=== PATIENT | female | born 1955 | race Caucasian/White ===

== ENCOUNTER 2020-05-01 12:11 | Inpatient (IN) | payer OTHER ==
--- NOTE | 2020-05-01 12:31 | ED ---
General Adult HPI - General Stated complaint: Arrhythmia Time Seen by Provider: 05/01/20 12:11 Source: patient, RN notes reviewed, old records reviewed - History of Present Illness Initial comments: This is a 64-year-old female who presents emergency department stating that on a walk today she felt very lightheaded and though her heart was racing. Patient felt short of breath as well. Patient denies any chest pain. Patient states normally this has happened in the past she lays down and hold her breath and it goes away. Patient states today it was much more significant and it wasn't going away and there is no place for her to lay down. Patient denies any recent fever chills or cough. Patient denies any nausea vomiting. The paramedics gave the patient adenosine 6 and then 12 and then her heart rate slowed down. P atient states currently she is asymptomatic. Patient is never seen a physician for this. Patient denies any swelling to the legs or calf tenderness. - Related Data Allergies Allergy/AdvReac Type Severity Reaction Status Date / Time Sulfa (Sulfonamide Allergy Unknown Verified 05/01/20 13:45 Antibiotics) Review of Systems ROS Statement: Those systems with pertinent positive or pertinent negative responses have been documented in the HPI. ROS Other: All systems not noted in ROS Statement are negative. General Exam - General Exam Comments Initial Comments: GENERAL: Patient is well-developed and well-nourished. Patient is nontoxic and well- hydrated and is in no acute distress. ENT: Neck is soft and supple. No significant lymphadenopathy is noted. Oropharynx is clear. Moist mucous membranes. Neck has full range of motion without eliciting any pain. EYES: The sclera were anicteric and conjunctiva were pink and moist. Extraocular movements were intact and pupils were equal round and reactive to light. Eyelids were unremarkable. PULMONARY: Unlabored respirations. Good breath sounds bilaterally. No audible rales rhonchi or wheezing was noted. CARDIOVASCULAR: There is a regular rate and rhythm without any murmurs gallops or rubs. ABDOMEN: Soft and nontender with normal bowel sounds. SKIN: Skin is clear with no lesions or rashes and otherwise unremarkable. NEUROLOGIC: Patient is alert and oriented x3. Cranial nerves II through XII are grossly intact. Motor and sensory are also intact. Normal speech, volume and content. Symmetrical smile. MUSCULOSKELETAL: Normal extremities with adequate strength and full range of motion. No lower extremity swelling or edema. No calf tenderness. LYMPHATICS: No significant lymphadenopathy is noted PSYCHIATRIC: Normal psychiatric evaluation. Course Vital Signs 05/01/20 05/01/20 12:32 13:33 Temperature 97.8 F Pulse Rate 87 81 Respiratory 15 16 Rate Blood Pressure 104/72 100/70 O2 Sat by Pulse 98 99 Oximetry Medical Decision Making - Medical Decision Making EKG shows normal sinus rhythm at 89 bpm IA interval 186 QRS is 64 QT interval 358 QTC is 435 per patient's EKG shows no ST segment elevation or depression. Chest x-ray shows no acute abnormality. Patient's troponin was elevated 0.107 and because of that we will observe the patient overnight I spoke with Dr. Foote he agreed to admit the patient admitted the patient I consult to cardiology. - Lab Data Result diagrams: 05/01/20 12:45 05/01/20 12:45 Lab Results 05/01/20 05/01/20 05/01/20 Range/Units 12:45 12:45 12:45 WBC 9.6 (3.8-10.6) k/uL RBC 4.65 (3.80-5.40) m/uL Hgb 13.5 (11.4-16.0) gm/dL Hct 42.9 (34.0-46.0) % MCV 92.3 (80.0-100.0) fL MCH 29.0 (25.0-35.0) pg MCHC 31.4 (31.0-37.0) g/dL RDW 13.2 (11.5-15.5) % Plt Count 257 (150-450) k/uL Neutrophils % 79 % Lymphocytes % 13 % Monocytes % 4 % Eosinophils % 3 % Basophils % 1 % Neutrophils # 7.6 (1.3-7.7) k/uL Lymphocytes # 1.2 (1.0-4.8) k/uL Monocytes # 0.4 (0-1.0) k/uL Eosinophils # 0.3 (0-0.7) k/uL Basophils # 0.1 (0-0.2) k/uL PT 9.7 (9.0-12.0) sec INR 0.9 (<1.2) APTT 18.5 L (22.0-30.0) sec Sodium 135 L (137-145) mmol/L Potassium 4.9 (3.5-5.1) mmol/L Chloride 101 (98-107) mmol/L Carbon Dioxide 25 (22-30) mmol/L Anion Gap 9 mmol/L BUN 19 H (7-17) mg/dL Creatinine 0.89 (0.52-1.04) mg/dL Est GFR (CKD-EPI)AfAm 80 (>60 ml/min/1.73 sqM) Est GFR (CKD-EPI)NonAf 70 (>60 ml/min/1.73 sqM) Glucose 111 H (74-99) mg/dL Calcium 9.1 (8.4-10.2) mg/dL Magnesium 1.7 (1.6-2.3) mg/dL Total Bilirubin 0.4 (0.2-1.3) mg/dL AST 28 (14-36) U/L ALT 20 (4-34) U/L Alkaline Phosphatase 59 (38-126) U/L Troponin I (0.000-0.034) ng/mL Total Protein 6.6 (6.3-8.2) g/dL Albumin 4.0 (3.5-5.0) g/dL TSH 17.400 H (0.465-4.680) mIU/L 05/01/20 Range/Units 12:45 WBC (3.8-10.6) k/uL RBC (3.80-5.40) m/uL Hgb (11.4-16.0) gm/dL Hct (34.0-46.0) % MCV (80.0-100.0) fL MCH (25.0-35.0) pg MCHC (31.0-37.0) g/dL RDW (11.5-15.5) % Plt Count (150-450) k/uL Neutrophils % % Lymphocytes % % Monocytes % % Eosinophils % % Basophils % % Neutrophils # (1.3-7.7) k/uL Lymphocytes # (1.0-4.8) k/uL Monocytes # (0-1.0) k/uL Eosinophils # (0-0.7) k/uL Basophils # (0-0.2) k/uL PT (9.0-12.0) sec INR (<1.2) APTT (22.0-30.0) sec Sodium (137-145) mmol/L Potassium (3.5-5.1) mmol/L Chloride (98-107) mmol/L Carbon Dioxide (22-30) mmol/L Anion Gap mmol/L BUN (7-17) mg/dL Creatinine (0.52-1.04) mg/dL Est GFR (CKD-EPI)AfAm (>60 ml/min/1.73 sqM) Est GFR (CKD-EPI)NonAf (>60 ml/min/1.73 sqM) Glucose (74-99) mg/dL Calcium (8.4-10.2) mg/dL Magnesium (1.6-2.3) mg/dL Total Bilirubin (0.2-1.3) mg/dL AST (14-36) U/L ALT (4-34) U/L Alkaline Phosphatase (38-126) U/L Troponin I 0.107 H* (0.000-0.034) ng/mL Total Protein (6.3-8.2) g/dL Albumin (3.5-5.0) g/dL TSH (0.465-4.680) mIU/L Disposition Clinical Impression: SVT (supraventricular tachycardia), Elevated troponin Disposition: ADMITTED IP TO THIS [facility] Referrals: Nonstaff,Physician [Primary Care Provider] - 1-2 days Time of Disposition: 14:22
[2020-05-01 13:01] LABS: Basophils # (A) 0.1 k/uL (0-0.2); Basophils % (A) 1 %; Eosinophils # (A) 0.3 k/uL (0-0.7); Eosinophils % (A) 3 %; HCT 42.9 % (34.0-46.0); HGB 13.5 gm/dL (11.4-16.0); Lymphocytes # (A) 1.2 k/uL (1.0-4.8); Lymphocytes % (A) 13 %; MCHC 31.4 g/dL (31.0-37.0); MCV 92.3 fL (80.0-100.0); Mean Platelet Volume 7.1; Monocytes # (A) 0.4 k/uL (0-1.0); Monocytes % (A) 4 %; Neutrophils # (A) 7.6 k/uL (1.3-7.7); Neutrophils % (A) 79 %; Platelet Count 257 k/uL (150-450); RBC 4.65 m/uL (3.80-5.40); RDW 13.2 % (11.5-15.5); WBC 9.6 k/uL (3.8-10.6)
--- NOTE | 2020-05-01 13:02 | XR ---
EXAMINATION TYPE: XR chest 2V DATE OF EXAM: 05/01/2020 COMPARISON: NONE HISTORY: Dysrhythmia TECHNIQUE: Frontal and lateral views of the chest are obtained. FINDINGS: There is no focal air space opacity, pleural effusion, or pneumothorax seen. The cardiac silhouette size is within normal limits. The osseous structures are intact. There are overlying car diac leads. Nodular densities present left lower lobe measuring approximately 8 mm. IMPRESSION: No acute cardiopulmonary process. Indeterminate pulmonary nodule, comparison with any ol d chest x-rays if available is recommended. Alternatively, short interval follow-up is recommended.
[2020-05-01 13:14] LABS: Calcium 9.1 mg/dL (8.4-10.2); Magnesium 1.7 mg/dL (1.6-2.3); Potassium 4.9 mmol/L (3.5-5.1); Total Bilirubin 0.4 mg/dL (0.2-1.3); Total Protein 6.6 g/dL (6.3-8.2)
[2020-05-01 13:16] LABS: INR 0.9 (<1.2); Prothrombin Time 9.7 sec (9.0-12.0)
[2020-05-01 13:23] LABS: Partial Thromboplastin Time 18.5 sec (22.0-30.0)
[2020-05-01] MEDS ORDERED: NITROGLYCERIN SL TABS 0.4 MG TAB SUBLINGUAL PRN (14:22)
--- NOTE | 2020-05-01 14:53 | P.HPIM ---
History of Present Illness This is a pleasant 64 years old female with past medical history of hypothyroidism, she is also on hormonal therapy with levothyroxine and estradiol. Presents because of palpitation and dressing heart rate. Patient states she gets that's often however today she was hiking with her friend when she started having resting heart rate and palpitation usually she lies down and get some rest and goes away but because she was hiking with her friend this time she kept moving on and within half an hour she become short of breath, dizzy, less energy and started sweating so her friend called [facility] for her. In the ambulance she received edema seen 6 and 12 mg and she felt better after that. Her symptoms of shortness of breath dizziness and addition all resolved and currently she is sitting in bed comfortable with no specific complaints. She denies chest pain, or discomfort. No dyspnea currently Patient denies change in urine or bowel habits, no nausea vomiting. patient says for the last 2 months she's been having heartburn continuously and the lower part of the chest, nonradiating She denies smoking or illicit tracts, she drinks occasionally. Patient was suspected to have SVT, she has 2 EKG showing SVT 1 is 188 BPM on the other 213 BPM, there is ST depression in the anterolateral length with QTC of 483, a third EKG showing sinus tachycardia at a rate of [address] T changes and QTC 413, there is a fourth EKG showing normal sinus rhythm with no ST T changes and QTC 435 Vitals currently stable and heart rate 81, blood pressure 100/70. Labs including CBC, BMP and liver enzymes were unremarkable, troponin is elevated 0.10. TSH is elevated to 17.4, free T4 is pending Patient was started on aspirin and nitro glycerin emergency room however she was not started on heparin drip as there is no evidence of A. fib or acute coronary syndrome Review of Systems CONSTITUTIONAL: No fever, no malaise, no fatigue. HEENT: No recent visual problems or hearing problems. Denied any sore throat. CARDIOVASCULAR: No orthopnea, PND, no palpitations, no syncope. PULMONARY: No shortness of breath, no cough, no hemoptysis. GASTROINTESTINAL: No diarrhea, no nausea, no vomiting, no abdominal pain. Normoactive bowel sounds. NEUROLOGICAL: No headaches, no weakness, no numbness. HEMATOLOGICAL: Denies any bleeding or petechiae. GENITOURINARY: Denies any burning micturition, frequency, or urgency. MUSCULOSKELETAL/RHEUMATOLOGICAL: Denies any joint pain, swelling, or any muscle pain. ENDOCRINE: Denies any polyuria or polydipsia. Past Medical History Past Medical History: Thyroid Disorder History of Any Multi-Drug Resistant Organisms: None Reported Past Surgical History: No Surgical Hx Reported Past Psychological History: No Psychological Hx Reported Smoking Status: Never smoker Past Alcohol Use History: None Reported Past Drug Use History: None Reported Medications and Allergies Home Medications Medication Instructions Recorded Confirmed Type Estradiol 2 mg PO DAILY 05/01/20 05/01/20 History Levothyroxine Sodium 112 mcg PO DAILY 05/01/20 05/01/20 History Medroxyprogesterone Acetate 5 mg PO DAILY 05/01/20 05/01/20 History [Provera] Sertraline [Zoloft] 50 mg PO DAILY 05/01/20 05/01/20 History Allergies Allergy/AdvReac Type Severity Reaction Status Date / Time Sulfa (Sulfonamide Allergy Itching Verified 05/01/20 14:13 Antibiotics) Physical Exam Vitals: Vital Signs Temp Pulse Resp BP Pulse Ox 05/01/20 13:33 81 16 100/70 99 05/01/20 12:32 97.8 F 87 15 104/72 98 Intake and Output 04/30/20 05/01/20 05/01/20 22:59 06:59 14:59 Other: Weight 65.771 kg GENERAL: The patient is alert and oriented x3, not in any acute distress. Well developed, well nourished. HEENT: Pupils are round and equally reacting to light. EOMI. No scleral icterus. No conjunctival pallor. Normocephalic, atraumatic. No pharyngeal erythema. No thyromegaly. CARDIOVASCULAR: S1 and S2 present. No murmurs, rubs, or gallops. PULMONARY: Chest is clear to auscultation, no wheezing or crackles. ABDOMEN: Soft, nontender, nondistended, normoactive bowel sounds. No palpable organomegaly. MUSCULOSKELETAL: No joint swelling or deformity. EXTREMITIES: No cyanosis, clubbing, or pedal edema. NEUROLOGICAL: Gross neurological examination did not reveal any focal deficits. SKIN: No rashes. No petechiae Results CBC & Chem 7: 05/01/20 12:45 05/01/20 12:45 Labs: Abnormal Lab Results - Last 24 Hours (Table) 05/01/20 05/01/20 05/01/20 Range/Units 12:45 12:45 12:45 APTT 18.5 L (22.0-30.0) sec Sodium 135 L (137-145) mmol/L BUN 19 H (7-17) mg/dL Glucose 111 H (74-99) mg/dL Troponin I 0.107 H* (0.000-0.034) ng/mL TSH 17.400 H (0.465-4.680) mIU/L Assessment and Plan Assessment: Supraventricular tachycardia, rhythm back to sinus Mostly Elevated troponin, mostly secondary to SVT Elevated TSH Hypothyroidism Plan: This is a pleasant 64 years old female who presents with SVT. Continue with aspirin. Cardiology consult Labs and medication were reviewed.. Continue same treatment. Continue with sy mptomatic treatment. Resume home medication. Monitor lytes and vitals. DVT and GI prophylaxis. Further recommendations of the clinical course of the patient DVT prophylaxis: Subcutaneous heparin GI Prophylaxis: Pepcid Prognosis is guarded
[2020-05-01] MEDS: FAMOTIDINE 20 MG/2 ML VIAL IV SCH (21:21)
[2020-05-01] MEDS: HEPARIN SODIUM,PORCINE 5,000 UNIT/ML 1 ML VIAL SQ SCH (21:22)
[2020-05-01] MEDS ORDERED: diphenhydrAMINE 25 MG CAP PO STA (22:15)
[2020-05-01] MEDS: MELATONIN 3 MG TABLET PO PRN (23:36)
[2020-05-02 00:25] LABS: Appearance,Urine Cloudy (Clear); Bacteria,Urine Rare /hpf; Bilirubin,Urine Negative (Negative); Blood,Urine Small (Negative); Budding Yeast,Urine Moderate /hpf; Color,Urine Yellow; Glucose,Urine (UA) Negative (Negative); Ketones,Urine Negative (Negative); Leukocyte Esterase,Urine Negative (Negative); Mucus,Urine Occasional /hpf; Nitrite,Urine Negative (Negative); Protein,Urine Negative (Negative); RBC,Urine 21 /hpf (0-5); Squamous Epithelial Cell,Urine 3 /hpf (0-4); WBC,Urine 4 /hpf (0-5)
[2020-05-02] MEDS: HEPARIN SODIUM,PORCINE 5,000 UNIT/ML 1 ML VIAL SQ SCH ×3 (06:49→21:06)
[2020-05-02 06:52] LABS: Cholesterol 246 mg/dL (<200); HDL Cholesterol 77 mg/dL (40-60); LDL Cholesterol,Calculated 135 mg/dL (0-99); Triglycerides 168 mg/dL (<150)
[2020-05-02] MEDS: FAMOTIDINE 20 MG/2 ML VIAL IV SCH (08:53)
[2020-05-02] MEDS: ASPIRIN 325 MG TAB PO SCH (08:53)
--- NOTE | 2020-05-02 10:49 | P.PN ---
Subjective This is a pleasant 64 years old female with past medical history of hypothyroidism, she is also on hormonal therapy with levothyroxine and estradiol . Presents because of palpitation and dressing heart rate. Patient states she gets that's often however today she was hiking with her friend when she started having resting heart rate and palpitation usually she lies down and get some rest and goes away but because she was hiking with her friend this time she kept moving on and within half an hour she become short of breath, dizzy, less energy and started sweating so her friend called [facility] for her. In the ambulance she received edema seen 6 and 12 mg and she felt better after that. Her symptoms of shortness of breath dizziness and addition all resolved and currently she is sitting in bed comfortable with no specific complaints. She denies chest pain, or discomfort. No dyspnea currently Patient denies change in urine or bowel habits, no nausea vomiting. patient says for the last 2 months she's been having heartburn continuously and the lower part of the chest, nonradiating She denies smoking or illicit tracts, she drinks occasionally. Patient was suspected to have SVT, she has 2 EKG showing SVT 1 is 188 BPM on the other 213 BPM, there is ST depression in the anterolateral length with QTC of 483, a third EKG showing sinus tachycardia at a rate of [address] changes and QTC 413, there is a fourth EKG showing normal sinus rhythm with no ST T changes and QTC 435 Vitals currently stable and heart rate 81, blood pressure 100/70. Labs including CBC, BMP and liver enzymes were unremarkable, troponin is elevated 0.10. TSH is elevated to 17.4, free T4 is pending Patient was started on aspirin and nitro glycerin emergency room however she was not started on heparin drip as there is no evidence of A. fib or acute coronary syndrome 05/02/2020 patient is awake and alert, no more palpitation, she felt anxious she could not sleep last night because she stayed in the emergency room and it was noisy. vitals are stable Patient has been evaluated by fur blower operator, patient is willing to proceed with cardiac cath upon cardiology recommendation Continue with aspirin and subcutaneous heparin Echocardiogram is pending Review of Systems CONSTITUTIONAL: No fever, no malaise, no fatigue. HEENT: No recent visual problems or hearing problems. Denied any sore throat. CARDIOVASCULAR: No orthopnea, PND, no palpitations, no syncope. PULMONARY: No shortness of breath, no cough, no hemoptysis. GASTROINTESTINAL: No diarrhea, no nausea, no vomiting, no abdominal pain. Normoactive bowel sounds. NEUROLOGICAL: No headaches, no weakness, no numbness. HEMATOLOGICAL: Denies any bleeding or petechiae. GENITOURINARY: Denies any burning micturition, frequency, or urgency. MUSCULOSKELETAL/RHEUMATOLOGICAL: Denies any joint pain, swelling, or any muscle pain. ENDOCRINE: Denies any polyuria or polydipsia. Active Medications Generic Name Dose Route Start Last Admin Trade Name Freq PRN Reason Stop Dose Admin Aspirin 325 mg 05/02/20 09:00 05/02/20 08:53 Aspirin PO 325 mg DAILY AMINATA Administration Famotidine 20 mg 05/01/20 21:00 05/02/20 08:53 Pepcid IV 20 mg Q12HR AMINATA Administration Heparin Sodium (Porcine) 5,000 unit 05/01/20 21:00 05/02/20 06:49 Heparin SQ 5,000 unit Q8H AMINATA Administration Levothyroxine Sodium 112 mcg 05/02/20 06:30 Synthroid PO DAILY@0630 AMINATA Melatonin 3 mg 05/01/20 22:13 05/01/20 23:36 Melatonin PO 3 mg HS PRN Administration Insomnia Nitroglycerin 0.4 mg 05/01/20 14:22 Nitrostat SUBLINGUAL Q5M PRN Chest Pain Sertraline HCl 50 mg 05/02/20 09:00 Zoloft PO DAILY [facility] Objective - Vital Signs Vital signs: Vital Signs Temp 98.2 F 05/02/20 08:59 Pulse 67 05/02/20 08:59 Resp 16 05/02/20 08:59 BP 111/67 05/02/20 08:59 Pulse Ox 98 05/02/20 08:59 Intake & Output 05/01/20 05/02/20 05/02/20 18:59 06:59 18:59 Weight 65.771 kg 65.771 kg Other: Voiding Method Toilet Toilet # Voids 0 - Exam GENERAL: The patient is alert and oriented x3, not in any acute distress. Well developed, well nourished. HEENT: Pupils are round and equally reacting to light. EOMI. No scleral icterus. No conjunctival pallor. Normocephalic, atraumatic. No pharyngeal erythema. No thyromegaly. CARDIOVASCULAR: S1 and S2 present. No murmurs, rubs, or gallops. PULMONARY: Chest is clear to auscultation, no wheezing or crackles. ABDOMEN: Soft, nontender, nondistended, normoactive bowel sounds. No palpable organomegaly. MUSCULOSKELETAL: No joint swelling or deformity. EXTREMITIES: No cyanosis, clubbing, or pedal edema. NEUROLOGICAL: Gross neurological examination did not reveal any focal deficits. SKIN: No rashes. no petechiae. - Labs CBC & Chem 7: 05/01/20 12:45 05/01/20 12:45 Labs: Abnormal Lab Results - Last 24 Hours (Table) 05/01/20 05/01/20 05/01/20 Range/Units 12:45 12:45 12:45 APTT 18.5 L (22.0-30.0) sec Sodium 135 L (137-145) mmol/L BUN 19 H (7-17) mg/dL Glucose 111 H (74-99) mg/dL Troponin I 0.107 H* (0.000-0.034) ng/mL Triglycerides (<150) mg/dL Cholesterol (<200) mg/dL LDL Cholesterol, Calc (0-99) mg/dL HDL Cholesterol (40-60) mg/dL TSH 17.400 H (0.465-4.680) mIU/L Urine Appearance (Clear) Urine Blood (Negative) Urine RBC (0-5) /hpf Urine Bacteria (None) /hpf Urine Mucus (None) /hpf Urine Yeast (Budding) (None) /hpf 05/01/20 05/01/20 05/01/20 Range/Units 16:09 19:01 23:38 APTT (22.0-30.0) sec Sodium (137-145) mmol/L BUN (7-17) mg/dL Glucose (74-99) mg/dL Troponin I 0.345 H* 0.322 H* (0.000-0.034) ng/mL Triglycerides (<150) mg/dL Cholesterol (<200) mg/dL LDL Cholesterol, Calc (0-99) mg/dL HDL Cholesterol (40-60) mg/dL TSH (0.465-4.680) mIU/L Urine Appearance Cloudy H (Clear) Urine Blood Small H (Negative) Urine RBC 21 H (0-5) /hpf Urine Bacteria Rare H (None) /hpf Urine Mucus Occasional H (None) /hpf Urine Yeast (Budding) Moderate H (None) /hpf 05/02/ Range/Units 05:43 APTT (22.0-30.0) sec Sodium (137-145) mmol/L BUN (7-17) mg/dL Glucose (74-99) mg/dL Troponin I (0.000-0.034) ng/mL Triglycerides 168 H (<150) mg/dL Cholesterol 246 H (<200) mg/dL LDL Cholesterol, Calc 135 H (0-99) mg/dL HDL Cholesterol 77 H (40-60) mg/dL TSH (0.465-4.680) mIU/L Urine Appearance (Clear) Urine Blood (Negative) Urine RBC (0-5) /hpf Urine Bacteria (None) /hpf Urine Mucus (None) /hpf Urine Yeast (Budding) (None) /hpf Assessment and Plan Assessment: Supraventricular tachycardia, rhythm back to sinus Mostly Elevated troponin, mostly secondary to SVT. Rule out coronary artery disease Elevated TSH3 T4 is normal. Most likely related to her hypothyroidism. Hypothyroidism preop evaluation, as patient may physical to cardiac cath Plan: This is a pleasant 64 years old female who presents with SVT. Continue with aspirin. Cardiology consult. Patient is planning for going for cardiac cath, we will confirm with cardiology. However patient has some risk from going to procedure but there is no absolute contraindication, however follow up results of echocardiogram. Labs and medication were reviewed.. Continue same treatment. Continue with symptomatic treatment. Resume home medication. Monitor lytes and vitals. DVT and GI prophylaxis. Further recommendations of the clinical course of the saroj ent DVT prophylaxis: Subcutaneous heparin GI Prophylaxis: Pepcid Prognosis is guarded
[2020-05-02] MEDS: SERTRALINE 50 MG TAB PO SCH (11:06)
[2020-05-02] MEDS: LEVOTHYROXINE 112 MCG TAB PO SCH (11:06)
--- NOTE | 2020-05-02 11:43 | ECHOF ---
Referral Reason: MEASUREMENTS -------- HEIGHT: 157.5 cm WEIGHT: 65.8 kg BP: IVSd: 1.0 cm (0.6 - 1.1) LVIDd: 3.2 cm (3.9 - 5.3) LVPWd: 1.1 cm (0.6 - 1.1) IVSs: 1.5 cm LVIDs: 1.2 cm LVPWs: 1.7 cm LAESV Index (A-L): 14.84 ml/m Ao Diam: 3.1 cm (2.0 - 3.7) AV Cusp: 1.7 cm (1.5 - 2.6) LA Diam: 1.9 cm (2.7 - 3.8) MV EXCURSION: 13.189 mm (> 18.000) MV EF SLOPE: 91 mm/s (70 - 150) EPSS: 0.3 cm MV E Rudolph: 0.76 m/s MV DecT: 295 ms MV A Rudolph: 0.85 m/s MV E/A Ratio: 0.89 RAP: 5.00 mmHg RVSP: 6.85 mmHg FINDINGS -------- Sinus rhythm. This was a technically good study. The left ventricular size is normal. Left ventricular wall thickness is normal. Overall left vent ricular systolic function is normal with, an EF between 55 - 60 %. The diastolic filling pattern is normal for the age of the patient 11.66. The right ventricle is normal in size. The left atrial size is normal. Normal LA size by volume 22+/-6 ml/m2. The right atrial size is normal. The aortic valve is trileaflet and appears structurally normal. The mitral valve is normal. There is trace mitral regurgitation. The tricuspid valve appears structurally normal. Trace tricuspid regurgitation present. Right demetris tricular systolic pressure is normal at < 35 mmHg. There is no pulmonic regurgitation present. The aortic root size is normal. Normal inferior vena cava with normal inspiratory collapse consistent with estimated right atrial pre ssure of 5 mmHg. There is no pericardial effusion. CONCLUSIONS -------- 1. Sinus rhythm. 2. This was a technically good study. 3. The left ventricular size is normal. 4. Left ventricular wall thickness is normal. 5. Overall left ventricular systolic function is normal with, an EF between 55 - 60 %. 6. The diastolic filling pattern is normal for the age of the patient 11.66 7. The right ventricle is normal in size. 8. The left atrial size is normal. 9. Normal LA size by volume 22+/-6 ml/m2. 10. The right atrial size is normal. 11. The aortic valve is trileaflet and appears structurally normal. 12. The mitral valve is normal. 13. There is trace mitral regurgitation. 14. The tricuspid valve appears structurally normal. 15. Trace tricuspid regurgitation present. 16. Right ventricular systolic pressure is normal at < 35 mmHg. 17. There is no pulmonic regurgitation present. 18. The aortic root size is normal. 19. Normal inferior vena cava with normal inspiratory collapse consistent with estimated right atrial pressure of 5 mmHg. 20. There is no pericardial effusion. MORT[employer]AGE BRANCH MANAGER: Sho Troy RDCS
--- NOTE | 2020-05-02 15:33 | CONS ---
JEFF Mason is a 64-year-old lady with history of intermittent palpitations for many years. Yesterday developed sustained palpitations while she was on a hike. She states that it started as shortness of breath, fatigue, tiredness and inability to exercise and she had a sustained palpitations. She tried to do the usual maneuvers that she does, they did not go away, called the ER, that apparently gave her Adenosine following which she converted to sinus rhythm. At the time of my evaluation patient appears comfortable at rest and she is in sinus rhythm. An EKG on her shows normal sinus rhythm and is within normal limits. LABS: Show that the potassium is 4.9, creatinine is 0.8. AST, ALT are within normal limits. Three sets of troponins are elevated at 0.1 0.3 and 0.3. TSH is high at 17.4 and free T4 is within normal limits. The patient has history of hypothyroidism and is currently on medications for the same. PAST MEDICAL HISTORY: Significant for hypothyroidism and paroxysmal SVT. The patient is currently on Zoloft, Provera, Synthroid and estradiol. ALLERGIES: SULFA. FAMILY HISTORY: Negative for premature coronary artery disease. SOCIAL HISTORY: Negative for smoking, EtOH abuse, or drug abuse. REVIEW OF SYSTEMS: HEENT is unremarkable. Cardiac as described above. Respiratory as described above. GI negative. Endocrine negative. Allergy Skin negative Musculoskeletal negative. Endocrine/Dermatologic negative . Constitutional negative Rest of the system review is not relevant. EXAM: Comfortable at rest. Vital signs are stable. There is no jugular venous distention. Carotid upstroke is normal. There is no bruit. Chest exam reveals good air entry bilaterally. Heart exam reveals first and second heart sounds. No gallop. No murmur. No rub. Abdomen is soft, nontender. Exam of extremities did not reveal any edema. Peripheral pulses are felt. LABORATORY DATA: Labs show that the hemoglobin is 13.5, potassium is 4.9 creatinine is 0.8. Tropes are elevated. LDL cholesterol is 135. ASSESSMENT: Paroxysmal SVT. Non ST-segment elevation NH. PLAN: I spent a lot of time with the patient and talked with her about her condition. She has paroxysmal SVT needs to be on a beta yulisa and if necessary refer to The patient has mild elevated troponin which could be because of a non ST-segment elevation NH on to the SVT and supply demand mismatch. I talked to her about her treatment options including cardiac catheterization and stress test and watchful waiting. She is going to think over this and will make a decision in the morning. ELVIRA / MIRTHA: [id number] /
[2020-05-02] MEDS: MELATONIN 3 MG TABLET PO PRN (21:03)
[2020-05-02] MEDS: FAMOTIDINE 20 MG TAB PO SCH (21:03)
[2020-05-03] MEDS: HEPARIN SODIUM,PORCINE 5,000 UNIT/ML 1 ML VIAL SQ SCH ×3 (04:59→20:21)
[2020-05-03] MEDS: LEVOTHYROXINE 112 MCG TAB PO SCH (05:00)
[2020-05-03] MEDS: ASPIRIN 325 MG TAB PO SCH (08:37)
[2020-05-03] MEDS: FAMOTIDINE 20 MG TAB PO SCH ×2 (08:37→20:20)
[2020-05-03] MEDS: SERTRALINE 50 MG TAB PO SCH (08:37)
[2020-05-03] MEDS: ATORVASTATIN 80 MG TAB PO SCH (09:00)
--- NOTE | 2020-05-03 10:09 | P.PN ---
Subjective This is a pleasant 64 years old female with past medical history of hypothyroidism, she is also on hormonal therapy with levothyroxine and estradiol . Presents because of palpitation and dressing heart rate. Patient states she gets that's often however today she was hiking with her friend when she started having resting heart rate and palpitation usually she lies down and get some rest and goes away but because she was hiking with her friend this time she kept moving on and within half an hour she become short of breath, dizzy, less energy and started sweating so her friend called [facility] for her. In the ambulance she received edema seen 6 and 12 mg and she felt better after that. Her symptoms of shortness of breath dizziness and addition all resolved and currently she is sitting in bed comfortable with no specific complaints. She denies chest pain, or discomfort. No dyspnea currently Patient denies change in urine or bowel habits, no nausea vomiting. patient says for the last 2 months she's been having heartburn continuously and the lower part of the chest, nonradiating She denies smoking or illicit tracts, she drinks occasionally. Patient was suspected to have SVT, she has 2 EKG showing SVT 1 is 188 BPM on the other 213 BPM, there is ST depression in the anterolateral length with QTC of 483, a third EKG showing sinus tachycardia at a rate of [address] T changes and QTC 413, there is a fourth EKG showing normal sinus rhythm with no ST T changes and QTC 435 Vitals currently stable and heart rate 81, blood pressure 100/70. Labs including CBC, BMP and liver enzymes were unremarkable, troponin is elevated 0.10. TSH is elevated to 17.4, free T4 is pending Patient was started on aspirin and nitro glycerin emergency room however she was not started on heparin drip as there is no evidence of A. fib or acute coronary syndrome 05/02/2020 patient is awake and alert, no more palpitation, she felt anxious she could not sleep last night because she stayed in the emergency room and it was noisy. vitals are stable Patient has been evaluated by apprentice lineman third step, patient is willing to proceed with cardiac cath upon cardiology recommendation Continue with aspirin and subcutaneous heparin Echocardiogram is pending 05/03/2020 Patient is awake and alert. No more chest pain or palpitation, echocardiogram: Showed ejection fraction of 55-60%, normal diastolic filling. Patient is still thinking between cardiac cath and stress test, she is leaning towards cardiac cath for her episodes of SVT and elevated troponin, and she is going to discuss with cardiology team today. Currently patient is on aspirin and subcu heparin We'll follow up with cardiology team recommendation Objective - Vital Signs Vital signs: Vital Signs Temp 97.8 F 05/03/20 08:00 Pulse 64 05/03/20 08:00 Resp 16 05/03/20 08:00 BP 107/57 05/03/20 08:00 Pulse Ox 100 05/03/20 08:00 Intake & Output 05/02/20 05/03/20 05/03/20 18:59 06:59 18:59 Weight 66 kg Other: Voiding Method Toilet Toilet # Voids 2 - Exam GENERAL: The patient is alert and oriented x3, not in any acute distress. Well developed, well nourished. HEENT: Pupils are round and equally reacting to light. EOMI. No scleral icterus. No conjunctival pallor. Normocephalic, atraumatic. No pharyngeal erythema. No thyromegaly. CARDIOVASCULAR: S1 and S2 present. No murmurs, rubs, or gallops. PULMONARY: Chest is clear to auscultation, no wheezing or crackles. ABDOMEN: Soft, nontender, nondistended, normoactive bowel sounds. No palpable organomegaly. MUSCULOSKELETAL: No joint swelling or deformity. EXTREMITIES: No cyanosis, clubbing, or pedal edema. NEUROLOGICAL: Gross neurological examination did not reveal any focal deficits. SKIN: No rashes. no petechiae. - Labs CBC & Chem 7: 05/01/20 12:45 05/01/20 12:45 Assessment and Plan Assessment: Supraventricular tachycardia, rhythm back to sinus Mostly Elevated troponin, mostly secondary to SVT. Rule out coronary artery disease Elevated TSH3 T4 is normal. Most likely related to her hypothyroidism. Hypothyroidism preop evaluation, as patient may physical to cardiac cath Plan: This is a pleasant 64 years old female who presents with SVT. Continue with asp irin. Cardiology consult. Patient is planning for going for cardiac cath, we will confirm with cardiology. However patient has some risk from going to procedure but there is no absolute contraindication, however follow up results of echocardiogram. Labs and medication were reviewed.. Continue same treatment. Continue with symptomatic treatment. Resume home medication. Monitor lytes and vitals. DVT and GI prophylaxis. Further recommendations of the clinical course of the patient DVT prophylaxis: Subcutaneous heparin GI Prophylaxis: Pepcid Prognosis is guarded
[2020-05-03] MEDS ORDERED: ALPRAZolam 0.25 MG TAB PO PRN (10:25)
[2020-05-03] MEDS ORDERED: ASPIRIN 325 MG TAB PO STA (10:25)
[2020-05-03] MEDS ORDERED: ALPRAZolam 0.5 MG TAB PO PRN (10:25)
[2020-05-03] MEDS ORDERED: SODIUM CHLORIDE 0.9% 1,000 ML in EMPTY BAG 1 BAG IV ONE (10:25)
[2020-05-03] MEDS ORDERED: ATORVASTATIN 80 MG TAB PO STA (10:25)
[2020-05-03] MEDS ORDERED: NITROGLYCERIN SL TABS 0.4 MG TAB SUBLINGUAL PRN (10:25)
[2020-05-03] MEDS ORDERED: LIDOCAINE 1% INJ 10MG/ML (20 ML MDV) ONE (11:01)
[2020-05-03] MEDS ORDERED: fentaNYL (PF) 50 MCG/ML 2 ML AMP ONE (11:01)
[2020-05-03] MEDS ORDERED: IV FLUID CONTINUATION 1,000 ML IV ONE (11:07)
[2020-05-03] MEDS: MIDAZOLAM 2 MG/2 ML VIAL IV ONE ×2 (11:20→11:25)
[2020-05-03] MEDS ORDERED: LIDOCAINE 1% INJ 10MG/ML (20 ML MDV) SQ ONE (11:21)
[2020-05-03] MEDS ORDERED: fentaNYL (PF) 50 MCG/ML 2 ML AMP IV ONE (11:25)
[2020-05-03] MEDS ORDERED: IOPAMIDOL-370 100ML BTL INJ ONE (11:30)
[2020-05-03 14:31] VITALS: RESP 16
--- NOTE | 2020-05-03 15:19 | CC ---
CARDIAC CATHETERIZATION REPORT INDICATION: Acute vxs-EM-pwvpgny elevation [place]. This is a 64-year-old lady with history of SVT who presented to hospital with supraventricular tachycardia and had elevated troponin. Patient underwent an echocardiogram that showed normal LV function. I advised the patient to undergo either a stress test or heart catheterization. She chose to undergo cardiac cath. The patient had been explained risks, benefits and alternatives, understood and accepted. PROCEDURE NOTE: After obtaining informed consent, left heart catheterization and coronary angiogram were performed via the right femoral artery using standard Josefina catheters. Patient tolerated the procedure well without any obvious complication. A femoral angiogram was performed and . FINDINGS: HEMODYNAMICS: Left ventricular end-diastolic pressure is 6 mm. There is no significant gradient across the aortic valve. LEFT VENTRICULOGRAM: Left ventriculogram was not performed. ANGIOGRAPHIC DATA: LEFT MAIN CORONARY ARTERY: Left main coronary artery is a normal-sized vessel and is free of stenosis. It divides into left anterior descending coronary artery and circumflex coronary artery. LAD and its branches, circumflex coronary artery and its branches are free of significant stenosis. RIGHT CORONARY ARTERY: Right coronary artery is a large dominant vessel and is free of significant disease. CONCLUSIONS: 1. Normal coronary arteries. 2. Normal left ventricular end-diastolic pressure. PLAN: The patient's troponin elevation could be related to the SVT and supply/demand mismatch. Her management is going to be in the form of risk factor modification, and we will address the issue of SVT by EP evaluation and ablation down the road. MMODL / IJN: [id number] /
[2020-05-03] MEDS: MELATONIN 3 MG TABLET PO PRN (21:59)
[2020-05-04] MEDS: HEPARIN SODIUM,PORCINE 5,000 UNIT/ML 1 ML VIAL SQ SCH (05:33)
[2020-05-04] MEDS: LEVOTHYROXINE 112 MCG TAB PO SCH (05:33)
[2020-05-04 07:30] VITALS: BP 103/65; TEMP 98
[2020-05-04] MEDS: ASPIRIN 325 MG TAB PO SCH (07:59)
[2020-05-04] MEDS: ATORVASTATIN 80 MG TAB PO SCH (07:59)
[2020-05-04] MEDS: FAMOTIDINE 20 MG TAB PO SCH (07:59)
[2020-05-04] MEDS: SERTRALINE 50 MG TAB PO SCH (07:59)
[2020-05-04 08:42] VITALS: PULSE 62
--- NOTE | 2020-05-04 10:01 | P.PN ---
Subjective Progress Note Date: 05/04/20 This is a 64-year-old female with history of hypothyroidism who presented to the hospital with palpitations. Patient was found to be in SVT, was given adenosine and converted to normal sinus rhythm. She underwent a cardiac catheterization yesterday which did not reveal any significant obstructi ve coronary artery disease. Patient was seen and examined this morning, denied any chest discomfort, no palpitations, no difficulty in breathing. Echocardiogram with Doppler study was performed which revealed an ejection fraction of 55-60%. RVSP normal. Blood pressure 102/60 with a heart rate in the 60s, 97% on room air. Objective - Vital Signs Vital signs: Vital Signs Temp 98 F 05/04/20 07:28 Pulse 62 05/04/20 08:00 Resp 16 05/04/20 08:00 BP 103/65 05/04/20 07:28 Pulse Ox 97 05/04/20 07:28 Intake & Output 05/03/20 05/04/20 05/04/20 18:59 06:59 18:59 Intake Total 435 480 Balance 435 480 Weight 66.7 kg Intake: IV 75 Oral 360 480 Other: Voiding Method Toilet Toilet # Voids 1 1 - Exam PHYSICAL EXAMINATION: GENERAL: 64-year-old female in no acute distress at the time of my examination HEENT: Head is atraumatic, normocephalic. Pupils equal, round. Sclera anicteric. Conjunctiva are clear. Mucous membranes of the mouth are moist. Neck is supple. There is no elevated jugular venous pressure. No carotid bruit is heard. HEART EXAMINATION: Heart S1, S2 normal. No murmur or gallop heard. CHEST EXAMINATION: Lungs are clear to auscultation and precussion. No chest wall tenderness is noted on palpation or with deep breathing. ABDOMEN: Soft, nontender. Bowel sounds are heard. No organomegaly noted. EXTREMITIES: 2+ peripheral pulses with no evidence of peripheral edema and no calf tenderness noted. Right groin soft, no evidence of any hematoma. NEUROLOGIC patient is awake, alert and oriented 3. . - Labs CBC & Chem 7: 05/01/20 12:45 05/01/20 12:45 Assessment and Plan Plan: Assessment and plan #1 supraventricular tachycardia, converted to normal sinus rhythm with adenosine #2 status post cardiac catheterization which was performed because of mild abnormality in troponin, it did not reveal any significantly obstructive coronary artery disease #3 hyperlipidemia #4 hypothyroidism Plan Patient may be discharged home today from cardiology's perspective, we'll make a follow-up appointment in the office with Dr. Camara post discharge. She has been initiated on a statin. DNP note has been reviewed, I agree with a documented findings and plan of care. Patient was seen and examined.
--- NOTE | 2020-05-04 11:04 | P.DS ---
Providers Date of admission: 05/01/20 14:23 Attending physician: Gilmer Ramirez MD Consults: 05/01/20 14:23 Consult Physician Urgent Consulting Provider: [facility] Consult Reason/Comments: Elevated troponin, SVT Do you want consulting provider notified?: Yes Primary care physician: Physician Nonstaff Hospital Course: Diagnoses: Supraventricular tachycardia, rhythm back to sinus. Needs follow up with EP vocational technical education director as an outpatient Mostly Elevated troponin, mostly secondary to SVT. has negative cardiac cath Elevated TSH3 T4 is normal. Most likely related to her hypothyroidism. Hypothyroidism preop evaluation, as patient may physical to cardiac cath Hospital course: This is a pleasant 64 years old female with past medical history of hypothyroidism, she is also on hormonal therapy with levothyroxine and estradiol. Presents because of palpitation SVT, which is converted back to sinus rhythm. Lacrosse Player evaluated the patient and in her view of high troponin she underwent cardiac cath which came back as normal coronary. She does not have any chest pain or dyspnea. No other symptoms. No recurrent arrhythmia. Patient is back to her normal state and she wants to go home Patient was cleared for discharge by vocational technical education director with a recommendation for follow-up as an outpatient. Patient will be discharged on aspirin 81 mg and statin per cardiology recommendation Problems and management plan were discussed with the patient and he verbalized understanding and acceptance Patient was found stable and can be discharged home however he needs follow-up as an outpatient. Patient was instructed to follow up with PCP within one week and patient agrees (She follow up with Dr. Luna , she told me she has a contact information and she'll call to make an appointment) also patient was instructed to follow up with a vocational technical education director Dr. Lara in 2 weeks and she agrees to call and make appointment Gen: patient is a AAOx3, no distress CVS: S1-S2, RRR, no murmur Lungs: B/L CTA, no wheezing Abdomen: soft, no distention, no tenderness, positive bowel sounds Extremity: no leg edema or induration Time spent more than 35 minutes Plan - Discharge Summary Discharge Rx Participant: No New Discharge Prescriptions: New Atorvastatin [Lipitor] 80 mg PO DAILY #30 tab Aspirin 81 mg PO DAILY #30 chewable Continue Sertraline [Zoloft] 50 mg PO DAILY Medroxyprogesterone Acetate [Provera] 5 mg PO DAILY Estradiol 2 mg PO DAILY Levothyroxine Sodium 112 mcg PO DAILY Discharge Medication List Estradiol 2 mg PO DAILY 05/01/20 [History] Levothyroxine Sodium 112 mcg PO DAILY 05/01/20 [History] Medroxyprogesterone Acetate [Provera] 5 mg PO DAILY 05/01/20 [History] Sertraline [Zoloft] 50 mg PO DAILY 05/01/20 [History] Aspirin 81 mg PO DAILY #30 chewable 05/04/20 [Rx] Atorvastatin [Lipitor] 80 mg PO DAILY #30 tab 05/04/20 [Rx] Follow up Appointment(s)/Referral(s): Nonstaff,Physician [Primary Care Provider] - 05/15/20 10:30 am (Follow-up with your family care doctor Dr. Guerra at [facility] office, you have the contact information We recommend to check your thyroid function test with your doctor's/ take all discharge papers to appointment ) Papi Banerjee MD [STAFF PHYSICIAN] - 2 Weeks (SVT, needs EP study/ office will notifiy you of appointment) Patient Instructions/Handouts: Supraventricular Tachycardia (GEN), Electrophysiology Study (PRE), Heart Catheterization (DC), Heart Catheterization (GEN) Activity/Diet/Wound Care/Special Instructions: Cardiac diet Activity is limited till you see your doctor Discharge Disposition: HOME SELF-CARE
== END 2020-05-04 11:18 | disposition home or self-care (01) | DRG 287 ==
LOC: EC 12:11 → 3SCARD 14:23
PROVIDERS: ADMIT Internal Medicine; ATTEND Internal Medicine
PROC: B2111ZZ Fluoroscopy of Multiple Coronary Arteries using Low Osmolar Contrast (ICD-10-PCS; 2020-05-03)
PROC: 4A023N7 Measurement of Cardiac Sampling and Pressure, Left Heart, Percutaneous Approach (ICD-10-PCS; principal; 2020-05-03 10:40)
DX: I47.1 Supraventricular tachycardia (principal); Z11.59 Encounter for screening for other viral diseases; E03.9 Hypothyroidism, unspecified; E78.5 Hyperlipidemia, unspecified; R79.89 Other specified abnormal findings of blood chemistry; Z79.899 Other long term (current) drug therapy; Z79.890 Hormone replacement therapy; Z88.2 Allergy status to sulfonamides
CPT/HCPCS: 36415; 71046; 80053; 80061; 81001; 83735; 84439; 84443; 84484; 85025; 85610; 85730; 93005; 93306; 93458; 96372; 96374; 96376; 99285